=== PATIENT | male | born 1940 | race Hispanic/Latino ===

== ENCOUNTER 2018-09-14 05:49 | Inpatient (IN) | payer MEDICARE ==
[2018-09-12 10:56] LABS: BASOPHILS % 0.8 % (0.0-1.0); EOSINOPHILS # (AUTO) 0.2 (0.0-0.4); EOSINOPHILS % 4.5 % (0.0-6.0); HEMATOCRIT 47.7 % (38.2-49.6); HEMOGLOBIN 16.3 g/dL (14.0-18.0); LYMPHOCYTES # (AUTO) 1.2 (1.0-3.2); LYMPHOCYTES % 29.7 % (18.0-39.1); MEAN CORPUSCULAR HEMOGLOBIN 31.7 pg (28-32); MEAN CORPUSCULAR HGB CONC 34.2 g/dL (31-35); MEAN CORPUSCULAR VOLUME 92.8 fL (81-99); MONOCYTES # (AUTO) 0.3 (0.2-0.8); MONOCYTES % 7.3 % (4.4-11.3); NEUTROPHILS # (AUTO) 2.3 (2.1-6.9); NEUTROPHILS % 57.2 % (38.7-80.0); PLATELET COUNT 106 x10e3/uL (140-360); RED BLOOD COUNT 5.14 x10e6/uL (4.3-5.7)
--- NOTE | 2018-09-12 11:21 | Diagnostic Imaging Report ---
PROCEDURE: X-RAY CHEST, TWO VIEWS COMPARISON: 03/13/2010. INDICATIONS: PREOPERATIVE CHEST XRAY FOR PROSTATE SURGERY FINDINGS: Lung volumes are low with linear opacity in the bases compatible with subsegmental atelectasis. No focal airspace consolidation, pleural effusion, or pneumothorax. Tortuosity and atherosclerotic calcification of the thoracic aorta. No pulmonary edema. No acute osseous abnormality. Multilevel degenerative disc changes of the thoracolumbar spine. CONCLUSION: Low lung volumes without acute cardiopulmonary abnormality. Dictated by: Michael Aguilar M.D. on 09/12/2018 at 11:31 Electronically approved by: Michael Aguilar M.D. on 09/12/2018 at 11:31
[2018-09-12 11:22] LABS: ANION GAP 11.3 mmol/L (8-16); BLOOD UREA NITROGEN 15 mg/dL (7-26); BUN/CREATININE RATIO 14 (6-25); CALCIUM 9.5 mg/dL (8.4-10.2); CARBON DIOXIDE 27 mmol/L (22-29); CHLORIDE 107 mmol/L (98-107); CREATININE, SERUM 1.06 mg/dL (0.72-1.25); EST GLOMERULAR FILTRATION RATE > 60 ML/MIN (60-); GLUCOSE 140 mg/dL (74-118); POTASSIUM 4.3 mmol/L (3.5-5.1); SODIUM 141 mmol/L (136-145)
[~2018-09-14] VITALS: Ht 167.6 cm; Wt 83.5 kg
[~2018-09-14 05:49] MED LIST: CEFUROXIME250 MG PO; DOXAZOSIN MESYLA4 MG PO; SIMVASTATIN40 MG PO
--- OUTSIDE RECORDS SUMMARY | 2018-09-14 05:52 | XMS REPORT ---
Author Author [facility] Address Unknown Phone Unavailable Care Team Providers Care Anatomic Pathology Manager Name Role Phone ROSS CHAIDEZ Unavailable Unavailable Payers Payer Name Policy Type Policy Number Effective Date Expiration Date Problems This patient has no known problems. Allergies, Adverse Reactions, Alerts Allergy Name Allergy Type Status Severity Reaction(s) Onset Date Inactive Date Treating Clinician Comments No Known Allergies DA Active U 2018-08-07 00:00:00 Medications This patient has no known medications. Results Test Description Test Time Test Comments Text Results Atomic Results Result Comments CHEST 2 VIEWS 2018-09-12 11:31:00 [place] [address] Patient Name: MAGALY HORTON MR #: [id number] : 1940 Age/Sex: 78/M Req #: [id number] Adm Physician: Ordered by: ROSS CHAIDEZ MD Report #: [id number] Location: OR Room/Bed: Procedure: [id number] DX/CHEST 2 VIEWS Exam Date: Exam Time: REPORT STATUS: Signed PROCEDURE: X-RAY CHEST, TWO VIEWS COMPARISON: 03/13/2010. INDICATIONS: PREOP ERATIVE CHEST XRAY FOR PROSTATE SURGERY FINDINGS: Lung volumes are low with linear opacity in the bases compatible with subsegmental atelectasis. No focal airspace consolidation, pleural effusion, or pneumothorax. Tortuosity and atherosclerotic calcification of the thoracic aorta. No pulmonary edema. No acute osseous abnormality. Multilevel degenerative disc changes of the thoracolumbar spine. CONCLUSION: Low lung volumes without acute cardiopulmonary abnormality. Dictated by: Sangita Jorgensen M.D. on 09/12/2018 at 11:31 Electronically approved by: Sangita Jorgensen M.D. on 09/12/2018 at 11:31 Dictated By: SANGITA JORGENSEN MD 1131 Transcribed By: JAE on 09/12/18 1131 COPY TO: ROSS CHAIDEZ MD
[2018-09-14] MEDS ORDERED: CEFTRIAXONE SOD 1 GM VIAL ONE (06:09)
[2018-09-14] MEDS ORDERED: GENTAMICIN 80MG/NS 100 ML 200 ML IV ONE (06:09)
[2018-09-14] MEDS ORDERED: BELLADONNA/OPIUM 60 MG SUPP PR ONE (08:39)
[2018-09-14] MEDS ORDERED: IOPAMIDOL 610MG/1ML 300 MG/ML VIAL IV ONE (08:39)
[2018-09-14] MEDS ORDERED: FENTANYL CITRATE/PF 100MCG/2 ML INJ ONE ×2 (10:08→19:36)
[2018-09-14] MEDS ORDERED: MORPHINE SULFATE INJ 4 MG/ML INJ ONE (12:02)
[2018-09-14] MEDS ORDERED: ACETAMINOPHEN/CODEINE 300MG - 30MG TAB PO PRN (13:30)
[2018-09-14] MEDS ORDERED: DIPHENHYDRAMINE HCL 25 MG CAP PO PRN (13:30)
[2018-09-14] MEDS ORDERED: BELLADONNA/OPIUM 60 MG SUPP PR PRN (13:30)
[2018-09-14] MEDS ORDERED: DIPHENHYDRAMINE HCL INJ 50 MG/ML VIAL IM PRN (13:30)
[2018-09-14] MEDS ORDERED: ONDANSETRON HCL INJ 2 MG/ML VIAL IV PRN (13:30)
[2018-09-14] MEDS: D5.45%NS/KCL 20MEQ 1,000 ML IV SCH (15:32)
[2018-09-14 16:01] VITALS: BP 155/108
[2018-09-14 16:06] VITALS: BP 142/80
[2018-09-14 16:14] VITALS: BP 142/80
[2018-09-14] MEDS: CEFUROXIME AXETIL 250 MG TAB PO SCH (17:17)
[2018-09-14] MEDS: PHENAZOPYRIDINE HCL 100 MG TAB PO SCH (17:23)
[2018-09-14] MEDS: DOCUSATE SODIUM 100 MG CAP PO SCH (17:23)
[2018-09-14] MEDS ORDERED: GLYCOPYRROLATE INJ 1MG/ 5 ML SYR ONE (18:11)
[2018-09-14] MEDS ORDERED: DEXAMETHASONE SOD PHOS INJ 4 MG/ML VIAL ONE (18:11)
[2018-09-14] MEDS ORDERED: ONDANSETRON HCL INJ 2 MG/ML VIAL ONE (18:11)
[2018-09-14] MEDS ORDERED: EPHEDRINE SULFATE INJ 50 MG/10 ML SYR ONE (18:11)
[2018-09-14] MEDS ORDERED: ACETAMINOPHEN 1000 MG/100 ML IV ONE (18:11)
[2018-09-14] MEDS ORDERED: FUROSEMIDE INJ 10 MG/ML 4 ML VIAL ONE (18:11)
[2018-09-14] MEDS ORDERED: PROPOFOL IV EMULSION 10 MG/ML 20 ML VIAL ONE (18:11)
[2018-09-14] MEDS ORDERED: SEVOFLURANE INHAL SOLN 250 ML PEN BTL ONE (18:11)
[2018-09-14] MEDS ORDERED: LIDOCAINE HCL 2% LOCAL INJ 5 ML SDV VIAL INJ ONE (18:11)
[2018-09-14] MEDS ORDERED: MIDAZOLAM HCL 2 MG/2 ML VIAL ONE (19:36)
[2018-09-14 19:50] VITALS: BP 131/75
[2018-09-14 20:00] VITALS: BP 131/75
--- NOTE | 2018-09-14 20:25 | Operative Report ---
DATE OF PROCEDURE: September 14, 2018 PREOPERATIVE DIAGNOSES: 1. Obstructive benign prostatic hypertrophy. 2. Recurrent urinary tract infections. POSTOPERATIVE DIAGNOSES: 1. Obstructive benign prostatic hypertrophy. 2. Recurrent urinary tract infections. OPERATIONS PERFORMED: 1. Cystourethroscopy with bilateral ureteral catheterization and retrograde ureteropyelography (separate procedure performed for the urinary tract infections). 2. Interpretation of retrograde ureteropyelography. 3. Supervision of fluoroscopy, no radiologist present. 4. Cystourethroscopy with transurethral resection of the prostate utilizing the plasma button electrode. ANESTHESIA: General. COMPLICATIONS: None. CLINICAL SUMMARY: James Copeland is a 78-year-old man with obstructive BPH and recurrent urinary infections. He is brought to the operating room for the above procedures. He is aware of the risks of bleeding, infection, injury to adjacent structures, incontinence, impotence, need for additional procedures, and elected to proceed. OPERATIVE PROCEDURE IN DETAIL: Informed consent was verified. James Copeland was properly identified, taken to the operating room, placed on the cystoscopy table in the supine position. Anesthesia was uneventfully begun. We verified that antibiotics were given by the anesthesiologist. The patient has been on antibiotics as an outpatient that are culture specific to his infection. Following placement of the patient in dorsal lithotomy position, his genitalia were prepared and draped in usual sterile fashion. The cystoscope sheath with the visual obturator in place was atraumatically inserted into the patient's urethra. It was guided down the unremarkable distal urethra, through the normal sphincteric region, through the prostate bed, which was significant for severely obstructing large trilobar prostatic hypertrophy with an intravesical bivalving and obstructing median lobe. Panendoscopy of the urinary bladder revealed trabeculations, but no tumors, no stones, and no diverticula. Normally positioned and configured ureteral orifices were identified. A ureteral catheter was used to cannulate each ureter, and retrograde ureteral pyelograms were performed. Interpretation of retrograde ureteropyelography: Contrast was instilled in retrograde fashion bilaterally. There were no tumors, no stones, and no diverticula. Unobstructed drainage was observed bilaterally fluoroscopically. J-hooking was noted bilaterally. The resectoscope was atraumatically placed. We utilized a plasma button electrode first to vaporize the median lobe taking care to stay away from the ureteral orifices. We then vaporized the prostate from the bladder neck to, but never past the verumontanum and down to the surgical capsule. Hemostasis was obtained with electrocautery. The resectoscope was withdrawn. A Mckenna catheter was placed. It was placed on continuous irrigation with completely clear efflux. A belladonna and opium suppository was placed, revealing a 50 g prostate that was smooth, non-fluctuant, and without any nodules. The patient was then uneventfully reversed from anesthesia and taken to the recovery room in stable condition. There were no complications to the procedure. The patient tolerated the procedure well. Estimated blood loss was minimal. Explicit postoperative instructions were given. We will then follow the patient in the recovery room and determine whether it is appropriate for him to go home or whether for him to be admitted for continuous bladder irrigation. Job#: [id number] cc:GARRETT GARCÍA MD
[2018-09-15] VITALS (7 sets, daily range): BP systolic 117–134; BP diastolic 64–76
[2018-09-15] MEDS: D5.45%NS/KCL 20MEQ 1,000 ML IV SCH ×4 (01:41→23:25)
[2018-09-15 05:53] LABS: BASOPHILS % 0.3 % (0.0-1.0); EOSINOPHILS # (AUTO) 0.2 (0.0-0.4); EOSINOPHILS % 2.3 % (0.0-6.0); HEMATOCRIT 45.1 % (38.2-49.6); HEMOGLOBIN 15.4 g/dL (14.0-18.0); LYMPHOCYTES # (AUTO) 0.9 (1.0-3.2); LYMPHOCYTES % 13.3 % (18.0-39.1); MEAN CORPUSCULAR HEMOGLOBIN 31.8 pg (28-32); MEAN CORPUSCULAR HGB CONC 34.1 g/dL (31-35); MEAN CORPUSCULAR VOLUME 93.2 fL (81-99); MONOCYTES # (AUTO) 0.5 (0.2-0.8); MONOCYTES % 7.6 % (4.4-11.3); NEUTROPHILS % 76.2 % (38.7-80.0); PLATELET COUNT 96 x10e3/uL (140-360); RED BLOOD COUNT 4.84 x10e6/uL (4.3-5.7); RED CELL DISTRIBUTION WIDTH 13.1 % (11.7-14.4)
[2018-09-15 06:11] LABS: ANION GAP 9.4 mmol/L (8-16); CALCIUM 8.4 mg/dL (8.4-10.2); CREATININE, SERUM 1.21 mg/dL (0.72-1.25); POTASSIUM 4.4 mmol/L (3.5-5.1)
[2018-09-15] MEDS: CEFUROXIME AXETIL 250 MG TAB PO SCH ×2 (08:27→17:24)
[2018-09-15] MEDS: DOCUSATE SODIUM 100 MG CAP PO SCH ×2 (08:27→17:24)
[2018-09-15] MEDS: PHENAZOPYRIDINE HCL 100 MG TAB PO SCH ×3 (08:27→17:24)
[2018-09-16] VITALS: BP 137/71
[2018-09-16 04:00] VITALS: BP 132/66
[2018-09-16] MEDS: D5.45%NS/KCL 20MEQ 1,000 ML IV SCH (05:30)
[2018-09-16 05:56] LABS: BASOPHILS % 0.5 % (0.0-1.0); EOSINOPHILS # (AUTO) 0.4 (0.0-0.4); EOSINOPHILS % 6.3 % (0.0-6.0); HEMATOCRIT 45.1 % (38.2-49.6); HEMOGLOBIN 15.1 g/dL (14.0-18.0); LYMPHOCYTES # (AUTO) 1.1 (1.0-3.2); LYMPHOCYTES % 19.8 % (18.0-39.1); MEAN CORPUSCULAR HEMOGLOBIN 31.4 pg (28-32); MEAN CORPUSCULAR HGB CONC 33.5 g/dL (31-35); MEAN CORPUSCULAR VOLUME 93.8 fL (81-99); MONOCYTES # (AUTO) 0.4 (0.2-0.8); MONOCYTES % 7.5 % (4.4-11.3); NEUTROPHILS # (AUTO) 3.8 (2.1-6.9); NEUTROPHILS % 65.7 % (38.7-80.0); PLATELET COUNT 94 x10e3/uL (140-360); RED BLOOD COUNT 4.81 x10e6/uL (4.3-5.7); RED CELL DISTRIBUTION WIDTH 13.2 % (11.7-14.4)
[2018-09-16 06:06] LABS: ANION GAP 10.7 mmol/L (8-16); BLOOD UREA NITROGEN 13 mg/dL (7-26); BUN/CREATININE RATIO 12 (6-25); CALCIUM 8.4 mg/dL (8.4-10.2); CARBON DIOXIDE 25 mmol/L (22-29); CHLORIDE 108 mmol/L (98-107); CREATININE, SERUM 1.05 mg/dL (0.72-1.25); EST GLOMERULAR FILTRATION RATE > 60 ML/MIN (60-); GLUCOSE 158 mg/dL (74-118); POTASSIUM 4.7 mmol/L (3.5-5.1); SODIUM 139 mmol/L (136-145)
[2018-09-16 09:15] VITALS: BP 131/69
[2018-09-16] MEDS: DOCUSATE SODIUM 100 MG CAP PO SCH (10:00)
[2018-09-16] MEDS: CEFUROXIME AXETIL 250 MG TAB PO SCH (10:00)
[2018-09-16] MEDS: PHENAZOPYRIDINE HCL 100 MG TAB PO SCH ×2 (10:00→13:50)
[2018-09-16 11:30] VITALS: BP 131/69
[2018-09-16 12:00] VITALS: BP 139/69
--- NOTE | 2018-09-16 13:14 | Progress Note ---
DATE: I am covering for Dr. Luciano today. The patient has no further hematuria. He denies any bladder spasms or pain. He still has a Mckenna in place. PHYSICAL EXAMINATION VITALS: The patient is afebrile. The blood pressure is 131/69, pulse 51,respiratory rate is 18, and saturation is 97%. HEENT: Shows no facial swelling or erythema. The nasal mucosa is normal. CARDIAC: Reveals a regular rate and rhythm with a normal S1 and S2. There is no murmur or rubs. LUNGS: Auscultation of the lungs reveals clear breath sounds bilaterally. There is no wheezing. ABDOMEN: Soft and nontender. IMPRESSION: Hematuria. PLAN 1. Patient is scheduled for discharge today; we are awaiting Dr. Anglin. 2. Continue antibiotics at home. 3. Follow up with urology. Job#: [id number] DARIN
[2018-09-16] MEDS ORDERED: TYLENOL WITH C1 EACH PO (15:28)
[2018-09-16] MEDS ORDERED: CEFUROXIME250 MG PO (15:30)
== END 2018-09-16 16:40 | disposition home or self-care (01) | DRG 713 ==
LOC: OR 05:49 → PACU V 13:35 → MED/SURG 14:20
PROVIDERS: ADMIT Internal Medicine; ATTEND Internal Medicine
PROC: BT141ZZ Fluoroscopy of Kidneys, Ureters and Bladder using Low Osmolar Contrast (ICD-10-PCS; 2018-09-14)
PROC: 0V508ZZ Destruction of Prostate, Via Natural or Artificial Opening Endoscopic (ICD-10-PCS; principal; 2018-09-14 08:00)
PROC: 0T788ZZ Dilation of Bilateral Ureters, Via Natural or Artificial Opening Endoscopic (ICD-10-PCS; 2018-09-14 08:00)
DX: N40.1 Benign prostatic hyperplasia with lower urinary tract symptoms (principal); N13.8 Other obstructive and reflux uropathy; R31.9 Hematuria, unspecified; E11.9 Type 2 diabetes mellitus without complications
CPT/HCPCS: 36415; 71046; 74420; 80048; 83735; 85025; 93005; J0696; J1100; J1580; J1940; J2001; J2250; J2270; J2405

== ENCOUNTER 2020-11-10 17:38 | Emergency (ER) | payer MEDICARE ==
[~2020-11-10] VITALS: Ht 167.6 cm; Wt 83.5 kg
[~2020-11-10 17:38] MED LIST changes: +TYLENOL WITH C1 EACH PO
[2020-11-10] MEDS ORDERED: ASPIRIN 81 MG CHEW TAB PO ONE (18:15)
[2020-11-10 18:26] LABS: AMYLASE 26 U/L (25-125)
[2020-11-10 18:27] LABS: BASOPHILS % 0.5 % (0.0-1.0); EOSINOPHILS # (AUTO) 0.1 (0.0-0.4); EOSINOPHILS % 1.7 % (0.0-6.0); HEMATOCRIT 46.9 % (38.2-49.6); HEMOGLOBIN 15.8 g/dL (14.0-18.0); LYMPHOCYTES # (AUTO) 0.6 (1.0-3.2); LYMPHOCYTES % 14.9 % (18.0-39.1); MEAN CORPUSCULAR HEMOGLOBIN 31.5 pg (28-32); MEAN CORPUSCULAR HGB CONC 33.7 g/dL (31-35); MEAN CORPUSCULAR VOLUME 93.4 fL (81-99); MONOCYTES # (AUTO) 0.3 (0.2-0.8); MONOCYTES % 6.9 % (4.4-11.3); NEUTROPHILS # (AUTO) 3.2 (2.1-6.9); NEUTROPHILS % 75.5 % (38.7-80.0); PLATELET COUNT 89 x10e3/uL (140-360); RED BLOOD COUNT 5.02 x10e6/uL (4.3-5.7); RED CELL DISTRIBUTION WIDTH 13.6 % (11.7-14.4)
[2020-11-10 18:34] LABS: CLARITY,URINE CLEAR (CLEAR); LEUKOCYTE ESTERASE ,URINE NEGATIVE (NEGATIVE); NITRITE,URINE NEGATIVE (NEGATIVE); URINE UROBILINOGEN 0.2 mg/dL (0.2 - 1)
[2020-11-10 18:37] LABS: ALANINE AMINOTRANSFERASE 21 IU/L (0-55); ALBUMIN 4.1 g/dL (3.5-5.0); ALBUMIN/GLOBULIN RATIO 1.2 (0.8-2.0); ALKALINE PHOSPHATASE 89 IU/L (40-150); ANION GAP 16.3 mmol/L (8-16); BLOOD UREA NITROGEN 14 mg/dL (7-26); BUN/CREATININE RATIO 12 (6-25); CALCIUM 9.5 mg/dL (8.4-10.2); CARBON DIOXIDE 24 mmol/L (22-29); CHLORIDE 101 mmol/L (98-107); CREATINE KINASE 51 IU/L (30-200); CREATININE, SERUM 1.16 mg/dL (0.72-1.25); EST GLOMERULAR FILTRATION RATE > 60 ML/MIN (60-); GLUCOSE 246 mg/dL (74-118); POTASSIUM 4.3 mmol/L (3.5-5.1); SODIUM 137 mmol/L (136-145)
[2020-11-10 18:50] LABS: LIPASE 31 U/L (8-78)
[2020-11-10 19:15] LABS: COLOR,URINE YELLOW (YELLOW)
[2020-11-10 19:17] LABS: PROTEIN,URINE DIPSTICK 1+ (NEGATIVE)
[2020-11-10 19:18] LABS: KETONES,URINE 2+ (NEGATIVE)
[2020-11-10 19:30] LABS: EPITHELIAL CELLS,URINE FEW /LPF
[2020-11-10 19:31] LABS: MUCUS,URINE FEW (RARE)
[2020-11-10 19:57] LABS: INR 1.04; PROTHROMBIN TIME 14.3 seconds (11.9-14.5)
[2020-11-10 19:58] LABS: PARTIAL THROMBOPLASTIN TIME 29.9 seconds (23.8-35.5)
[2020-11-10] MEDS ORDERED: HEPARIN 25,000 UNIT 1,300 UNIT in DEXTROSE 5% 250ML 250 ML IV SCH (20:00)
[2020-11-10] MEDS ORDERED: HEPARIN SOD (PORCINE) 5,000 UNIT/ML VIAL IV ONE (20:00)
[2020-11-10] MEDS ORDERED: HEPARIN 25,000 UNIT DRIP IV ONE (20:22)
[2020-11-10] MEDS ORDERED: HEPARIN SOD (PORCINE) 1000 UNIT/ML SDV ONE (20:22)
[2020-11-10 20:35] LABS: EOSINOPHILS % (MANUAL) 1 % (0-7); LYMPHOCYTES % (MANUAL) 16 % (19-48); MONOCYTES % (MANUAL) 8 % (3.4-9.0); NEUTROPHILS % (MANUAL) 75 % (40-74)
[2020-11-10 20:36] LABS: PLATELET ESTIMATE MODERATELY DECREASED; PLATELET MORPHOLOGY COMMENT NORMAL
[2020-11-10 20:37] LABS: RBC MORPHOLOGY COMMENT NORMAL
[2020-11-10] MEDS ORDERED: LEVEMIR FL100 UNIT/1 SC (21:15)
[2020-11-10] MEDS ORDERED: GLIPIZIDE ER5 MG PO (21:15)
[2020-11-10] MEDS ORDERED: TRULICITY1.5 MG/0.5 SC (21:15)
[2020-11-10] MEDS ORDERED: OXYBUTYNIN CHLOR5 MG PO (21:15)
[2020-11-10] MEDS ORDERED: IOPAMIDOL 370 MG/ML 200 ML INFUS..BTL INJ ONE (21:27)
[2020-11-10 21:46] VITALS: BP 154/82
== END 2020-11-10 22:40 | disposition other institution (70) ==
LOC: ER 18:16
DX: I81 Portal vein thrombosis (principal); I82.890 Acute embolism and thrombosis of other specified veins; K86.89 Other specified diseases of pancreas; R94.31 Abnormal electrocardiogram [ECG] [EKG]; I10 Essential (primary) hypertension; E78.5 Hyperlipidemia, unspecified; Z11.52 Encounter for screening for COVID-19
CPT/HCPCS: 36415; 74177; 80053; 81001; 82150; 82550; 82553; 83690; 84484; 85025; 85610; 85730; 93005; 99284; J1644 ×2; Q9967; U0002

== ENCOUNTER 2021-01-21 19:04 | Emergency (ER) | payer MEDICARE, OTHER ==
[~2021-01-21] VITALS: Ht 167.6 cm; Wt 83.5 kg
[~2021-01-21 19:04] MED LIST changes: +GLIPIZIDE ER5 MG PO; +LEVEMIR FL100 UNIT/1 SC; +OXYBUTYNIN CHLOR5 MG PO; +TRULICITY1.5 MG/0.5 SC
[2021-01-21 21:25] LABS: BASOPHILS % 0.7 % (0.0-1.0); EOSINOPHILS % 1.5 % (0.0-6.0); HEMATOCRIT 30.7 % (38.2-49.6); LYMPHOCYTES # (AUTO) 0.3 (1.0-3.2); LYMPHOCYTES % 22.8 % (18.0-39.1); MEAN CORPUSCULAR HEMOGLOBIN 30.1 pg (28-32); MEAN CORPUSCULAR HGB CONC 32.6 g/dL (31-35); MEAN CORPUSCULAR VOLUME 92.5 fL (81-99); MONOCYTES # (AUTO) 0.1 (0.2-0.8); MONOCYTES % 6.6 % (4.4-11.3); NEUTROPHILS # (AUTO) 0.9 (2.1-6.9); NEUTROPHILS % 65.5 % (38.7-80.0); PLATELET COUNT 85 x10e3/uL (140-360); RED BLOOD COUNT 3.32 x10e6/uL (4.3-5.7); RED CELL DISTRIBUTION WIDTH 18.6 % (11.7-14.4)
[2021-01-21 21:44] LABS: ALANINE AMINOTRANSFERASE 113 IU/L (0-55); ALBUMIN 2.4 g/dL (3.5-5.0); ALBUMIN/GLOBULIN RATIO 0.7 (0.8-2.0); ALKALINE PHOSPHATASE 215 IU/L (40-150); ANION GAP 13.9 mmol/L (8-16); BLOOD UREA NITROGEN 18 mg/dL (7-26); BUN/CREATININE RATIO 23 (6-25); CALCIUM 8.4 mg/dL (8.4-10.2); CARBON DIOXIDE 23 mmol/L (22-29); CHLORIDE 106 mmol/L (98-107); EST GLOMERULAR FILTRATION RATE > 60 ML/MIN (60-); GLUCOSE 325 mg/dL (74-118); POTASSIUM 4.9 mmol/L (3.5-5.1); SODIUM 138 mmol/L (136-145)
[2021-01-21 23:45] VITALS: BP 121/75
== END 2021-01-22 | disposition home or self-care (01) ==
LOC: ER 22:03
DX: R18.8 Other ascites (principal); K86.9 Disease of pancreas, unspecified; R10.9 Unspecified abdominal pain
CPT/HCPCS: 36415; 74176; 80053; 85025; 99284

== ENCOUNTER 2021-02-14 21:01 | Emergency (ER) | payer MEDICARE ==
[~2021-02-14] VITALS: Ht 167.6 cm; Wt 83.5 kg
[2021-02-15 01:01] VITALS: BP 101/66
== END 2021-02-15 01:00 | disposition home or self-care (01) ==
LOC: ER 21:24
DX: R18.8 Other ascites (principal); E11.9 Type 2 diabetes mellitus without complications; E78.5 Hyperlipidemia, unspecified; Z85.07 Personal history of malignant neoplasm of pancreas; Z85.05 Personal history of malignant neoplasm of liver
CPT/HCPCS: 99283

== ENCOUNTER 2021-03-11 12:32 | Emergency (ER) | payer MEDICARE, OTHER ==
[~2021-03-11] VITALS: Ht 167.6 cm; Wt 83.5 kg
[2021-03-11] MEDS ORDERED: HYDROCODONE/APAP 10MG-325MG TAB ONE (14:56)
[2021-03-11] MEDS ORDERED: HYDROCODONE/APAP 10MG-325MG TAB PO ONE (15:00)
[2021-03-11] MEDS ORDERED: LIDOPATCH1 EACH TOP (15:07)
== END 2021-03-11 17:34 | disposition home or self-care (01) ==
LOC: ER 13:07
DX: M54.5 Low back pain (principal); W18.30XA Fall on same level, unspecified, initial encounter; E11.9 Type 2 diabetes mellitus without complications; E78.5 Hyperlipidemia, unspecified; Z85.07 Personal history of malignant neoplasm of pancreas; Z85.05 Personal history of malignant neoplasm of liver
CPT/HCPCS: 72131; 99284

== ENCOUNTER 2021-03-14 13:38 | Emergency (ER) | payer MEDICARE ==
[~2021-03-14] VITALS: Ht 167.6 cm; Wt 83.5 kg
[~2021-03-14 13:38] MED LIST changes: +LIDOPATCH1 EACH TOP
== END 2021-03-14 15:38 | disposition home or self-care (01) ==
LOC: ER 13:50
DX: I95.9 Hypotension, unspecified (principal); C25.9 Malignant neoplasm of pancreas, unspecified; C78.7 Secondary malignant neoplasm of liver and intrahepatic bile duct; E11.9 Type 2 diabetes mellitus without complications; E78.5 Hyperlipidemia, unspecified; Z66 Do not resuscitate
CPT/HCPCS: 93005; 99282